=== PATIENT | male | born 1970 | race Two or more races ===

== ENCOUNTER 2016-12-15 22:20 | Inpatient (IN) | payer BC ==
[~2016-12-15] VITALS: Ht 175.3 cm; Wt 89.9 kg
[~2016-12-15 22:20] MED LIST: ETOMIDATE 2MG/ML 10ML VIAL IV ONE; SUCCINYLCHOLINE CHLORIDE 200MG/10ML VIAL IV ONE
[2016-12-15] MEDS ORDERED: SUCCINYLCHOLINE CHLORIDE 200MG/10ML VIAL IV ONE (22:30)
[2016-12-15] MEDS ORDERED: PIPERACILLIN/TAZ 3.375G PREMIX 50 ML IV ONE (22:30)
[2016-12-15] MEDS ORDERED: FUROSEMIDE 40MG/4ML VIAL IV STA (22:30)
[2016-12-15] MEDS ORDERED: ETOMIDATE 2MG/ML 10ML VIAL IV ONE (22:30)
[2016-12-15] MEDS ORDERED: PROPOFOL 10MG/ML 100ML 100 ML IV ONE (22:30)
[2016-12-15 22:53] LABS: HEMATOCRIT. 37.9 % (42.0-52.0); HEMOGLOBIN. 12.4 g/dL (14.0-18.0); MEAN CORPUSCULAR HEMOGLOBIN 27.8 pg (28.0-32.0); MEAN CORPUSCULAR VOLUME 84.9 fL (80.0-94.0); MEAN PLATELET VOLUME 6.9 fl (7.4-10.4); PLATELET 497 x1000/uL (130-400); RED BLOOD CELL COUNT 4.46 mill/uL (4.7-6.1)
[2016-12-15 23:00] LABS: INR 1.2; PARTIAL THROMBOPLASTIN TIME 27.1 sec (23.4-31.0); PROTHROMBIN TIME 12.3 sec (9.4-11.6)
[2016-12-15 23:05] LABS: PLATELET ESTIMATE INCREASED
[2016-12-15 23:06] LABS: CARBON DIOXIDE 25 mEq/L (21-32); CHLORIDE 97 mEq/L (98-107)
[2016-12-15 23:08] LABS: CREATINE KINASE 42 IU/L (39-308)
[2016-12-15 23:10] LABS: TROPONIN I < 0.02 ng/mL (0.00-0.04)
[2016-12-15 23:14] LABS: BG BASE EXCESS -2.2 mmol/L (-2.0-2.0); BG CARBOXYHEMOGLOBIN 0.3 % (0.5-1.5); BG DEOXYHEMOGLOBIN 0.4 % (0.0-5.0); BG FRACTION INSPIRED OXYGEN 100; BG HCO3 ACT 25.5 mmol/L (22.0-26.0); BG METHEMOGLOBIN 0.3 % (0.0-1.5); BG OXYGEN SATURATION 99.6 % (92.0-98.5); BG PCO2 56.8 mmHg (35.0-45.0); BG PO2 372.7 mmHg (75.0-100.0); BG SAMPLE SITE RIGHT BRACHIAL; BG TIDAL VOLUME(mL) 550 mL; BG TOTAL HEMOGLOBIN 13.1 g/dL (12.0-18.0); BG VENT MODE VENT - A/C; BG VENT RATE 12 set
[2016-12-15] MEDS ORDERED: LORAZEPAM 2MG/ML CPJ IV ONE (23:15)
[2016-12-16] VITALS (31 sets, daily range): BP systolic 76–146; BP diastolic 56–103
[2016-12-16] MEDS ORDERED: NOREPINEPHRINE 4 MG in DEXT 5% WATER 246 ML IV ONE (01:00)
[2016-12-16] MEDS ORDERED: VANCOMYCIN 1 G PREMIX 200 ML IV SCH (01:00)
[2016-12-16] MEDS: NOREPINEPHRINE 4 MG in DEXT 5% WATER 246 ML IV NR ×2 (01:19→05:41)
[2016-12-16] MEDS ORDERED: FUROSEMIDE 40MG/4ML VIAL IV NR (04:15)
[2016-12-16] MEDS ORDERED: PROPOFOL 10MG/ML 100ML 100 ML IV ONE (07:15)
[2016-12-16] MEDS ORDERED: ONDANSETRON HCL 4MG/2ML VIAL IV PRN (12:00)
[2016-12-16] MEDS ORDERED: ACETAMINOPHEN 325MG TABLET PO PRN (12:00)
[2016-12-16] MEDS ORDERED: IPRATROPIUM/ALBUTEROL 0.5-3(2.5)MG/3ML NEB INH PRN (12:00)
[2016-12-16] MEDS ORDERED: CLONIDINE 0.1MG TABLET PO PRN (12:00)
[2016-12-16] MEDS ORDERED: MAGNESIUM/ALUMINUM HYDROXIDE/SIMETHICONE 30ML UDC PO PRN (12:00)
[2016-12-16] MEDS ORDERED: DEXTROSE 50% WATER 50ML SYRINGE IV PRN (12:00)
[2016-12-16] MEDS ORDERED: LEVOFLOXACIN 500MG PREMIX 100 ML IV ONE (12:00)
[2016-12-16] MEDS ORDERED: ACETAMINOPHEN 650MG SUPP PR PRN ×2 (12:00→16:15)
[2016-12-16] MEDS ORDERED: NA PHOS,M-B/NA PHOS,DI-BA ENEMA 118ML PR PRN (12:00)
[2016-12-16] MEDS ORDERED: PROPOFOL 10MG/ML 100ML 100 ML IV PRN (12:30)
[2016-12-16] MEDS ORDERED: FENTANYL CITRATE/PF 500 MCG in SODIUM CHLORIDE 0.9% 40 ML IV PRN (12:30)
[2016-12-16] MEDS ORDERED: NOREPINEPHRINE 8 MG in DEXT 5% WATER 242 ML IV PRN (12:30)
[2016-12-16 12:59] LABS: BG BASE EXCESS 1.4 mmol/L (-2.0-2.0); BG CARBOXYHEMOGLOBIN 0.4 % (0.5-1.5); BG FRACTION INSPIRED OXYGEN 80; BG HCO3 ACT 25.9 mmol/L (22.0-26.0); BG METHEMOGLOBIN 0.4 % (0.0-1.5); BG OXYHEMOGLOBIN 98.2 % (94.0-97.0); BG PCO2 40.4 mmHg (35.0-45.0); BG PH 7.425 (7.350-7.450); BG PO2 144.6 mmHg (75.0-100.0); BG SAMPLE SITE RIGHT BRACHIAL; BG TIDAL VOLUME(mL) 600 mL; BG VENT MODE VENT - A/C; BG VENT RATE 12 set
[2016-12-16] MEDS: BLOOD SUGAR DIAGNOSTIC STRIP TEST SCH ×3 (13:12→21:33)
[2016-12-16] MEDS: INSULIN LISPRO 100 UNITS/ML SUBCUT SCH ×3 (13:20→21:00)
[2016-12-16] MEDS: SODIUM CHLORIDE 0.45% 1,000 ML IV SCH (13:27)
[2016-12-16] MEDS: SODIUM CHLORIDE 0.9% INJ 3ML FLUSH IVF SCH ×2 (14:00→22:11)
[2016-12-16] MEDS: FENTANYL CITRATE/PF 500 MCG in SODIUM CHLORIDE 0.9% 40 ML IV PRN (14:41)
[2016-12-16] MEDS: MEROPENEM 1,000 MG in SODIUM CHLORIDE 0.9% 100 ML IV SCH ×2 (14:45→21:20)
[2016-12-16] MEDS: VANCOMYCIN 1250MG in DEXTROSE 5% WATER 250ML IV SCH ×2 (15:37→22:11)
[2016-12-16] MEDS: IPRATROPIUM/ALBUTEROL 0.5-3(2.5)MG/3ML NEB HHN SCH (17:09)
[2016-12-16] MEDS: ACETYLCYSTEINE 100MG/ML 10% VIAL 4ML INH SCH (17:09)
[2016-12-16 17:36] LABS: CLARITY URINE CLEAR (CLEAR); COLOR URINE YELLOW (YELLOW); GLUCOSE URINE NEGATIVE (NEGATIVE); KETONES URINE NEGATIVE (NEGATIVE); LEUKOCYTE ESTERASE URINE NEGATIVE (NEGATIVE); NITRITE URINE NEGATIVE (NEGATIVE); OCCULT BLOOD URINE 1+ (NEGATIVE); PROTEIN URINE TRACE (NEGATIVE); SPECIFIC GRAVITY URINE 1.015 (1.005-1.030); UROBILINOGEN URINE 0.2 E.U./dL (0.2-1.0)
[2016-12-16 17:52] LABS: *AMPHETAMINES SCREEN URINE NEGATIVE (NEGATIVE); *BARBITURATES SCREEN URINE NEGATIVE (NEGATIVE); *BENZODIAZEPINES SCREEN URINE NEGATIVE (NEGATIVE); *COCAINE SCREEN URINE NEGATIVE (NEGATIVE); CANNABINOID URINE SCREEN NEGATIVE (NEGATIVE); METHADONE URINE SCREEN NEGATIVE (NEGATIVE); OPIATES URINE SCREEN PRESUMTIVE POSITIVE (NEGATIVE); PHENCYCLIDINE URINE SCREEN NEGATIVE (NEGATIVE)
[2016-12-16] MEDS: NOREPINEPHRINE 8 MG in DEXT 5% WATER 242 ML IV PRN (18:02)
[2016-12-16 18:11] LABS: HEMATOCRIT. 32.9 % (42.0-52.0); HEMOGLOBIN. 10.7 g/dL (14.0-18.0); MEAN CORPUSCULAR HEMOGLOBIN 27.2 pg (28.0-32.0); MEAN CORPUSCULAR VOLUME 83.8 fL (80.0-94.0); MEAN PLATELET VOLUME 6.9 fl (7.4-10.4); PLATELET 342 x1000/uL (130-400); RED BLOOD CELL COUNT 3.93 mill/uL (4.7-6.1); RED CELL DISTRIBUTION WIDTH 16.1 % (11.6-14.6)
[2016-12-16 18:17] LABS: INR 1.2; PROTHROMBIN TIME 12.4 sec (9.4-11.6)
[2016-12-16 18:20] LABS: CHLORIDE 97 mEq/L (98-107)
[2016-12-16 18:28] LABS: CARBON DIOXIDE 30 mEq/L (21-32)
[2016-12-16 18:47] LABS: PLATELET ESTIMATE NORMAL
[2016-12-16 18:47] LABS: TROPONIN I 0.04 ng/mL (0.00-0.04)
[2016-12-16] MEDS: IPRATROPIUM/ALBUTEROL 0.5-3(2.5)MG/3ML NEB HHN PRN (21:00)
[2016-12-17] VITALS (85 sets, daily range): BP systolic 81–159; BP diastolic 56–113
[2016-12-17] MEDS: IPRATROPIUM/ALBUTEROL 0.5-3(2.5)MG/3ML NEB HHN SCH ×4 (02:46→20:21)
[2016-12-17] MEDS: ACETYLCYSTEINE 100MG/ML 10% VIAL 4ML INH SCH ×3 (02:46→14:23)
[2016-12-17] MEDS: MEROPENEM 1,000 MG in SODIUM CHLORIDE 0.9% 100 ML IV SCH ×3 (05:04→21:56)
[2016-12-17] MEDS: VANCOMYCIN 1250MG in DEXTROSE 5% WATER 250ML IV SCH ×3 (05:38→23:02)
[2016-12-17] MEDS: SODIUM CHLORIDE 0.45% 1,000 ML IV SCH (05:38)
[2016-12-17] MEDS: NOREPINEPHRINE 8 MG in DEXT 5% WATER 242 ML IV PRN (05:40)
[2016-12-17] MEDS: SODIUM CHLORIDE 0.9% INJ 3ML FLUSH IVF SCH ×3 (06:06→21:56)
[2016-12-17 06:21] LABS: CREATINE KINASE 66 IU/L (39-308); TROPONIN I < 0.02 ng/mL (0.00-0.04)
[2016-12-17 08:20] LABS: HEMATOCRIT. 31.2 % (42.0-52.0); HEMOGLOBIN. 10.3 g/dL (14.0-18.0); MEAN CORPUSCULAR HEMOGLOBIN 27.8 pg (28.0-32.0); MEAN CORPUSCULAR VOLUME 83.9 fL (80.0-94.0); MEAN PLATELET VOLUME 6.9 fl (7.4-10.4); PLATELET 384 x1000/uL (130-400); RED BLOOD CELL COUNT 3.72 mill/uL (4.7-6.1); RED CELL DISTRIBUTION WIDTH 15.6 % (11.6-14.6)
[2016-12-17 08:34] LABS: CARBON DIOXIDE 23 mEq/L (21-32); CHLORIDE 98 mEq/L (98-107)
[2016-12-17 09:27] LABS: BG BASE EXCESS 4.6 mmol/L (-2.0-2.0); BG CARBOXYHEMOGLOBIN 0.2 % (0.5-1.5); BG DEOXYHEMOGLOBIN 4.1 % (0.0-5.0); BG FRACTION INSPIRED OXYGEN 40; BG HCO3 ACT 28.6 mmol/L (22.0-26.0); BG METHEMOGLOBIN 0.2 % (0.0-1.5); BG OXYGEN SATURATION 95.9 % (92.0-98.5); BG OXYHEMOGLOBIN 95.5 % (94.0-97.0); BG PCO2 40.1 mmHg (35.0-45.0); BG PH 7.471 (7.350-7.450); BG PO2 75.4 mmHg (75.0-100.0); BG SAMPLE SITE RIGHT BRACHIAL; BG TIDAL VOLUME(mL) 550 mL; BG TOTAL HEMOGLOBIN 11.1 g/dL (12.0-18.0); BG VENT MODE VENT - A/C; BG VENT RATE 14 set
[2016-12-17] MEDS: PANTOPRAZOLE SODIUM 40 MG/VIAL IV SCH (10:35)
[2016-12-17] MEDS: FENTANYL CITRATE/PF 500 MCG in SODIUM CHLORIDE 0.9% 40 ML IV PRN ×3 (10:36→21:58)
[2016-12-17 10:44] LABS: PLATELET ESTIMATE NORMAL
[2016-12-17] MEDS ORDERED: SODIUM CHLORIDE 0.9% 1,000 ML IV SCH (11:30)
[2016-12-17] MEDS: INSULIN LISPRO 100 UNITS/ML SUBCUT SCH (12:00)
[2016-12-17] MEDS: BLOOD SUGAR DIAGNOSTIC STRIP TEST SCH ×2 (12:00→18:00)
[2016-12-17] MEDS: PROPOFOL 10MG/ML 100ML 100 ML IV PRN (16:24)
[2016-12-17] MEDS: ACETAMINOPHEN 650MG/20.3ML UDC GT PRN (20:57)
[2016-12-18] VITALS (88 sets, daily range): BP systolic 82–145; BP diastolic 54–94
[2016-12-18] MEDS: BLOOD SUGAR DIAGNOSTIC STRIP TEST SCH ×4 (00:20→17:54)
[2016-12-18] MEDS: INSULIN LISPRO 100 UNITS/ML SUBCUT SCH ×4 (00:36→18:04)
[2016-12-18] MEDS: IPRATROPIUM/ALBUTEROL 0.5-3(2.5)MG/3ML NEB HHN SCH ×5 (01:32→19:57)
[2016-12-18] MEDS: ACETYLCYSTEINE 100MG/ML 10% VIAL 4ML INH SCH ×4 (01:56→19:58)
[2016-12-18] MEDS: FENTANYL CITRATE/PF 500 MCG in SODIUM CHLORIDE 0.9% 40 ML IV PRN ×3 (04:22→23:38)
[2016-12-18] MEDS: NOREPINEPHRINE 8 MG in DEXT 5% WATER 242 ML IV PRN (04:23)
[2016-12-18 04:39] LABS: BASOPHILS % 0.5 % (0.0-2.0); EOSINOPHILS % 2.5 % (0.0-5.0); HEMATOCRIT. 33.3 % (42.0-52.0); HEMOGLOBIN. 10.8 g/dL (14.0-18.0); LYMPHOCYTES % 10.3 % (20.0-50.0); MEAN CORPUSCULAR VOLUME 83.1 fL (80.0-94.0); MEAN PLATELET VOLUME 6.8 fl (7.4-10.4); MONOCYTES % 12.4 % (2.0-8.0); NEUTROPHILS % 74.3 % (40.0-76.0); PLATELET 409 x1000/uL (130-400); RED BLOOD CELL COUNT 4.01 mill/uL (4.7-6.1); RED CELL DISTRIBUTION WIDTH 16.1 % (11.6-14.6)
[2016-12-18 05:01] LABS: CARBON DIOXIDE 29 mEq/L (21-32); CHLORIDE 97 mEq/L (98-107); TROPONIN I < 0.02 ng/mL (0.00-0.04)
[2016-12-18] MEDS: MEROPENEM 1,000 MG in SODIUM CHLORIDE 0.9% 100 ML IV SCH ×2 (05:16→13:18)
[2016-12-18] MEDS: SODIUM CHLORIDE 0.9% INJ 3ML FLUSH IVF SCH ×3 (05:17→21:53)
[2016-12-18] MEDS: VANCOMYCIN 1250MG in DEXTROSE 5% WATER 250ML IV SCH ×2 (08:00→20:09)
[2016-12-18 08:19] LABS: BG BASE EXCESS 3.5 mmol/L (-2.0-2.0); BG CARBOXYHEMOGLOBIN 0.2 % (0.5-1.5); BG DEOXYHEMOGLOBIN 2.7 % (0.0-5.0); BG FRACTION INSPIRED OXYGEN 40; BG HCO3 ACT 28.4 mmol/L (22.0-26.0); BG METHEMOGLOBIN 0.2 % (0.0-1.5); BG OXYGEN SATURATION 97.3 % (92.0-98.5); BG OXYHEMOGLOBIN 96.9 % (94.0-97.0); BG PCO2 44.3 mmHg (35.0-45.0); BG PH 7.425 (7.350-7.450); BG PO2 96.8 mmHg (75.0-100.0); BG SAMPLE SITE RIGHT BRACHIAL; BG TIDAL VOLUME(mL) 550 mL; BG TOTAL HEMOGLOBIN 11.8 g/dL (12.0-18.0); BG VENT MODE VENT - A/C; BG VENT RATE 14 set
[2016-12-18] MEDS: PANTOPRAZOLE SODIUM 40 MG/VIAL IV SCH (08:43)
[2016-12-18] MEDS ORDERED: SODIUM BICARBONATE 4% (2.4MEQ) 5ML VIAL IV ONE (09:05)
[2016-12-18] MEDS: PROPOFOL 10MG/ML 100ML 100 ML IV PRN (09:08)
[2016-12-18] MEDS: ACETAMINOPHEN 650MG/20.3ML UDC GT PRN (09:08)
[2016-12-19] VITALS (64 sets, daily range): BP systolic 105–160; BP diastolic 66–112
[2016-12-19] MEDS: BLOOD SUGAR DIAGNOSTIC STRIP TEST SCH ×4 (00:22→17:38)
[2016-12-19] MEDS: INSULIN LISPRO 100 UNITS/ML SUBCUT SCH ×4 (00:26→17:38)
[2016-12-19] MEDS: IPRATROPIUM/ALBUTEROL 0.5-3(2.5)MG/3ML NEB HHN SCH ×6 (01:58→20:23)
[2016-12-19] MEDS: MEROPENEM 1000MG in NORMAL SALINE 100ML IV SCH ×3 (02:38→17:15)
[2016-12-19] MEDS: SODIUM CHLORIDE 0.9% INJ 3ML FLUSH IVF SCH ×3 (06:57→23:34)
[2016-12-19] MEDS: VANCOMYCIN 1250MG in DEXTROSE 5% WATER 250ML IV SCH ×2 (08:18→20:25)
[2016-12-19] MEDS: ACETAMINOPHEN 650MG/20.3ML UDC GT PRN (08:18)
[2016-12-19] MEDS: PANTOPRAZOLE SODIUM 40 MG/VIAL IV SCH (08:23)
[2016-12-19] MEDS: FENTANYL CITRATE/PF 500 MCG in SODIUM CHLORIDE 0.9% 40 ML IV PRN (08:35)
[2016-12-19] MEDS: ACETYLCYSTEINE 100MG/ML 10% VIAL 4ML INH SCH ×2 (08:39→16:04)
[2016-12-19 13:49] LABS: BG BASE EXCESS -1.5 mmol/L (-2.0-2.0); BG CARBOXYHEMOGLOBIN 0.3 % (0.5-1.5); BG DEOXYHEMOGLOBIN 4.6 % (0.0-5.0); BG FRACTION INSPIRED OXYGEN 40; BG HCO3 ACT 23.5 mmol/L (22.0-26.0); BG METHEMOGLOBIN 0.1 % (0.0-1.5); BG OXYGEN SATURATION 95.4 % (92.0-98.5); BG PCO2 40.6 mmHg (35.0-45.0); BG PO2 82.7 mmHg (75.0-100.0); BG PRESSURE SUPPORT 6; BG SAMPLE SITE RIGHT RADIAL; BG TOTAL HEMOGLOBIN 11.9 g/dL (12.0-18.0); BG VENT MODE VENT - CPAP
[2016-12-19] MEDS ORDERED: FUROSEMIDE 40MG/4ML VIAL IVP NR (18:15)
[2016-12-19] MEDS: GUAIFENESIN 200MG/10ML SUGAR FREE UDC NG PRN ×2 (19:33→23:34)
[2016-12-20] VITALS (33 sets, daily range): BP systolic 109–143; BP diastolic 65–99
[2016-12-20] MEDS: MEROPENEM 1000MG in NORMAL SALINE 100ML IV SCH ×3 (00:44→16:45)
[2016-12-20] MEDS: ACETYLCYSTEINE 100MG/ML 10% VIAL 4ML INH SCH ×5 (01:55→21:49)
[2016-12-20] MEDS: IPRATROPIUM/ALBUTEROL 0.5-3(2.5)MG/3ML NEB HHN SCH ×5 (01:55→20:15)
[2016-12-20] MEDS: BLOOD SUGAR DIAGNOSTIC STRIP TEST SCH ×5 (05:42→23:57)
[2016-12-20] MEDS: INSULIN LISPRO 100 UNITS/ML SUBCUT SCH ×5 (05:43→23:56)
[2016-12-20] MEDS: IPRATROPIUM/ALBUTEROL 0.5-3(2.5)MG/3ML NEB HHN PRN ×2 (06:29→21:49)
[2016-12-20] MEDS: SODIUM CHLORIDE 0.9% INJ 3ML FLUSH IVF SCH ×3 (06:51→23:15)
[2016-12-20 06:55] LABS: HEMATOCRIT. 30.4 % (42.0-52.0); MEAN CORPUSCULAR HEMOGLOBIN 27.3 pg (28.0-32.0); MEAN CORPUSCULAR VOLUME 82.8 fL (80.0-94.0); MEAN PLATELET VOLUME 6.8 fl (7.4-10.4); PLATELET 414 x1000/uL (130-400); RED BLOOD CELL COUNT 3.68 mill/uL (4.7-6.1); RED CELL DISTRIBUTION WIDTH 16.4 % (11.6-14.6)
[2016-12-20] MEDS: VANCOMYCIN 1250MG in DEXTROSE 5% WATER 250ML IV SCH ×2 (07:17→21:16)
[2016-12-20 07:37] LABS: CARBON DIOXIDE 31 mEq/L (21-32); CHLORIDE 97 mEq/L (98-107); VANCOMYCIN TROUGH 21.8 ug/mL (5.0-10.0)
[2016-12-20 08:37] LABS: PLATELET ESTIMATE SLIGHTLY INCREASED
[2016-12-20] MEDS: PANTOPRAZOLE SODIUM 40 MG/VIAL IV SCH (08:53)
[2016-12-20] MEDS: METOCLOPRAMIDE HCL 10MG TABLET PO SCH ×2 (11:37→17:30)
[2016-12-20] MEDS: GUAIFENESIN 200MG/10ML SUGAR FREE UDC NG PRN ×2 (11:39→21:30)
[2016-12-20] MEDS: DOCUSATE SODIUM SUGAR FREE 100MG/10ML UDC NG SCH (11:40)
[2016-12-21] VITALS (27 sets, daily range): BP systolic 96–162; BP diastolic 63–112
[2016-12-21] MEDS: IPRATROPIUM/ALBUTEROL 0.5-3(2.5)MG/3ML NEB HHN SCH ×6 (00:30→20:05)
[2016-12-21] MEDS: ACETYLCYSTEINE 100MG/ML 10% VIAL 4ML INH SCH ×6 (00:30→20:05)
[2016-12-21] MEDS: METOCLOPRAMIDE HCL 10MG TABLET PO SCH (00:52)
[2016-12-21] MEDS: MEROPENEM 1000MG in NORMAL SALINE 100ML IV SCH ×3 (00:53→16:48)
[2016-12-21] MEDS: GUAIFENESIN 200MG/10ML SUGAR FREE UDC NG PRN (03:03)
[2016-12-21] MEDS: HYDROCODONE/ACETAMINOPHEN 5/325MG TABLET PO PRN ×2 (03:03→11:18)
[2016-12-21] MEDS: INSULIN LISPRO 100 UNITS/ML SUBCUT SCH ×3 (06:00→17:25)
[2016-12-21] MEDS: SODIUM CHLORIDE 0.9% INJ 3ML FLUSH IVF SCH ×3 (06:23→20:34)
[2016-12-21] MEDS: BLOOD SUGAR DIAGNOSTIC STRIP TEST SCH ×3 (06:23→17:25)
[2016-12-21] MEDS: VANCOMYCIN 1250MG in DEXTROSE 5% WATER 250ML IV SCH ×2 (07:54→20:19)
[2016-12-21] MEDS: PANTOPRAZOLE SODIUM 40 MG/VIAL IV SCH (08:36)
[2016-12-21] MEDS: DOCUSATE SODIUM SUGAR FREE 100MG/10ML UDC NG SCH (08:36)
[2016-12-22] VITALS (12 sets, daily range): BP systolic 120–166; BP diastolic 63–96
[2016-12-22] MEDS: BLOOD SUGAR DIAGNOSTIC STRIP TEST SCH ×5 (00:12→23:31)
[2016-12-22] MEDS: IPRATROPIUM/ALBUTEROL 0.5-3(2.5)MG/3ML NEB HHN SCH ×7 (00:45→23:51)
[2016-12-22] MEDS: ACETYLCYSTEINE 100MG/ML 10% VIAL 4ML INH SCH ×7 (00:47→23:51)
[2016-12-22] MEDS: MEROPENEM 1000MG in NORMAL SALINE 100ML IV SCH ×3 (00:56→16:27)
[2016-12-22] MEDS: INSULIN LISPRO 100 UNITS/ML SUBCUT SCH ×5 (06:00→23:35)
[2016-12-22] MEDS: SODIUM CHLORIDE 0.9% INJ 3ML FLUSH IVF SCH ×3 (06:32→21:02)
[2016-12-22] MEDS: VANCOMYCIN 1250MG in DEXTROSE 5% WATER 250ML IV SCH ×2 (07:41→20:41)
[2016-12-22] MEDS: DOCUSATE SODIUM SUGAR FREE 100MG/10ML UDC NG SCH (08:58)
[2016-12-22] MEDS: PANTOPRAZOLE SODIUM 40 MG/VIAL IV SCH (08:58)
[2016-12-22] MEDS ORDERED: FUROSEMIDE 100MG/10ML VIAL IVP NR (10:00)
[2016-12-22] MEDS ORDERED: ZOLPIDEM TARTRATE 5MG TABLET PO PRN (19:45)
[2016-12-22] MEDS: ACETAMINOPHEN 650MG/20.3ML UDC GT PRN (21:18)
[2016-12-23] VITALS (20 sets, daily range): BP systolic 102–157; BP diastolic 57–100
[2016-12-23] MEDS: MEROPENEM 1000MG in NORMAL SALINE 100ML IV SCH ×3 (00:44→16:50)
[2016-12-23] MEDS: IPRATROPIUM/ALBUTEROL 0.5-3(2.5)MG/3ML NEB HHN SCH ×5 (04:00→16:45)
[2016-12-23] MEDS: INSULIN LISPRO 100 UNITS/ML SUBCUT SCH ×2 (06:00→12:00)
[2016-12-23] MEDS: BLOOD SUGAR DIAGNOSTIC STRIP TEST SCH ×2 (06:30→12:00)
[2016-12-23] MEDS: SODIUM CHLORIDE 0.9% INJ 3ML FLUSH IVF SCH ×2 (06:32→14:00)
[2016-12-23 06:52] LABS: BASOPHILS % 0.7 % (0.0-2.0); EOSINOPHILS % 2.8 % (0.0-5.0); HEMATOCRIT. 31.4 % (42.0-52.0); HEMOGLOBIN. 10.4 g/dL (14.0-18.0); LYMPHOCYTES % 8.6 % (20.0-50.0); MEAN CORPUSCULAR HEMOGLOBIN 27.3 pg (28.0-32.0); MEAN CORPUSCULAR VOLUME 82.2 fL (80.0-94.0); MONOCYTES % 12.8 % (2.0-8.0); NEUTROPHILS % 75.1 % (40.0-76.0); PLATELET 465 x1000/uL (130-400); RED BLOOD CELL COUNT 3.82 mill/uL (4.7-6.1); RED CELL DISTRIBUTION WIDTH 16.7 % (11.6-14.6)
[2016-12-23 07:04] LABS: CARBON DIOXIDE 31 mEq/L (21-32); CHLORIDE 97 mEq/L (98-107)
[2016-12-23] MEDS: VANCOMYCIN 1250MG in DEXTROSE 5% WATER 250ML IV SCH (08:39)
[2016-12-23] MEDS: DOCUSATE SODIUM SUGAR FREE 100MG/10ML UDC NG SCH (08:39)
[2016-12-23] MEDS: PANTOPRAZOLE SODIUM 40 MG/VIAL IV SCH (08:39)
[2016-12-23] MEDS ORDERED: FUROSEMIDE 40MG/4ML VIAL IVP SCH (10:30)
[2016-12-25] MEDS ORDERED: LORA2VIA33 SL (08:28)
[2016-12-25] MEDS ORDERED: AC10R PR (08:28)
[2016-12-25] MEDS ORDERED: IPRA3AMP9 HHN (08:28)
[2016-12-25] MEDS ORDERED: MORP1SYR2 SL (08:28)
[2016-12-25] MEDS ORDERED: ONDA4TAB5 PO (08:28)
[2016-12-25] MEDS ORDERED: FURO-152 PO (08:28)
[2016-12-25] MEDS ORDERED: GUAI600T26 PO (08:28)
[2016-12-25] MEDS ORDERED: HYOS0.122 PO (08:28)
[2016-12-25] MEDS ORDERED: BISA-81 PR (08:28)
[2016-12-25] MEDS ORDERED: LEVO750T21 PO (08:28)
== END 2016-12-23 18:40 | disposition hospice, inpatient (51) | DRG 871 ==
LOC: ER 22:39 → CVICU 12-16 00:01 → EDBEDREQTM 12-16 00:04 → EDBEDREQ 12-16 00:04 → ENRESERV 12-16 11:37 → 3WST 12-21 18:52
PROVIDERS: ADMIT Family Medicine; ATTEND Family Medicine
PROC: 5A1945Z Respiratory Ventilation, 24-96 Consecutive Hours (ICD-10-PCS; principal; 2016-12-15)
PROC: 0BH17EZ Insertion of Endotracheal Airway into Trachea, Via Natural or Artificial Opening (ICD-10-PCS; 2016-12-15)
PROC: 06HM33Z Insertion of Infusion Device into Right Femoral Vein, Percutaneous Approach (ICD-10-PCS; 2016-12-15)
PROC: 0W993ZZ Drainage of Right Pleural Cavity, Percutaneous Approach (ICD-10-PCS; 2016-12-18)
PROC: 5A09357 Assistance with Respiratory Ventilation, Less than 24 Consecutive Hours, Continuous Positive Airway Pressure (ICD-10-PCS; 2016-12-20)
DX: R65.21 Severe sepsis with septic shock (principal); J96.01 Acute respiratory failure with hypoxia; J18.1 Lobar pneumonia, unspecified organism; J90 Pleural effusion, not elsewhere classified; A41.9 Sepsis, unspecified organism; C78.00 Secondary malignant neoplasm of unspecified lung; C64.9 Malignant neoplasm of unspecified kidney, except renal pelvis; I10 Essential (primary) hypertension; Z51.5 Encounter for palliative care; Z90.5 Acquired absence of kidney
CPT/HCPCS: 31500; 32555; 36415; 36556; 36600; 51702; 71010; 71250; 76604; 80048; 80053; 80202; 80305; 81001; 82375; 82550; 82805; 82962; 83036; 83605; 83690; 83880; 84443; 84478; 84481; 84484; 85025; 85610; 85730; 87040; 87070; 87086; 87205; 92610; 93005; 93306; 93970; 94002; 94003; 94640; 94660; 94664; 94667; 96365; 96367; 96375; 96376; 97110; 97116; 97162; 97164; 97530; 99291; C9113; J0330; J1815; J1940; J2060; J2185; J2405; J2543; J2704; J3010; J3370; J3490; J7030; J7050; J7060; J7608; J7620; J8597; A4315